=== PATIENT | male | born 1945 | race Caucasian/White ===

== ENCOUNTER 2016-06-06 17:03 | Emergency (ER) | payer MEDICARE, OTHER ==
[~2016-06-06] VITALS: Ht 182.9 cm; Wt 86.2 kg
[~2016-06-06 17:03] MED LIST: ALLO100T PO; BENA5TAB2 PO; DIGO250T4 PO; DOXE50CA4 PO; GABA300C PO; METO50TA3 PO; TAMS-12 PO; WARF1TAB47 PO; ZOLP5TAB2 PO
[2016-06-06] MEDS ORDERED: GELATIN SPONGE,ABSORBABLE 1 SPONGE SPONGE TP ONE (17:29)
[2016-06-06 21:18] VITALS: BP 123/68
== END 2016-06-06 21:19 | disposition home or self-care (01) ==
LOC: ER 17:04
DX: S91.105A Unspecified open wound of left lesser toe(s) without damage to nail, initial encounter (principal); D68.9 Coagulation defect, unspecified; I10 Essential (primary) hypertension; E11.9 Type 2 diabetes mellitus without complications; Z88.6 Allergy status to analgesic agent; Z88.8 Allergy status to other drugs, medicaments and biological substances; Z91.013 Allergy to seafood; Z79.01 Long term (current) use of anticoagulants; W27.8XXA Contact with other nonpowered hand tool, initial encounter; Y93.89 Activity, other specified; Y92.89 Other specified places as the place of occurrence of the external cause; Y99.9 Unspecified external cause status
CPT/HCPCS: 99283; A4606; Z7610

== ENCOUNTER 2016-08-22 20:17 | Inpatient (IN) | payer MEDICARE, OTHER ==
[~2016-08-22] VITALS: Ht 167.6 cm; Wt 99.8 kg
--- NOTE | 2016-08-22 20:30 | NUR ---
71 YO MALE [facility] PER EMT PT WAS SENT FOR "CHRONIC COUGH; HAD XRAY DONE AT [facility] AND WAS ABN; POSSIBLE PNA". PT DS TO ER BED, SKIN WARM AND DRY, RR EVEN AND UNALBORED. AWAITING ORDERS FROM PROVIDER
--- NOTE | 2016-08-22 20:46 | NUR ---
RADIOLOGY AT BED SIDEF OR CXRAY
--- NOTE | 2016-08-22 22:23 | NUR ---
CALLED [facility]AN[facility] TO READ XRAY
[2016-08-22] MEDS ORDERED: IV SET PRIMARY PUMP SET 1 EA INFUS.SET MC ONE (22:25)
[2016-08-22] MEDS ORDERED: PIPERACILLIN /TAZOBACTAM 3.375 G VIAL IV ONE (22:25)
[2016-08-22] MEDS ORDERED: POTA20TA83 PO (22:26)
[2016-08-22] MEDS ORDERED: D-ME118S12 PO (22:26)
[2016-08-22] MEDS ORDERED: BUME2TAB3 PO (22:26)
[2016-08-22] MEDS ORDERED: ESCI5TAB PO (22:26)
[2016-08-22] MEDS ORDERED: ASPI81TA2 PO (22:26)
[2016-08-22] MEDS ORDERED: ACET-2799 PO (22:26)
[2016-08-22] MEDS ORDERED: ATOR40TA PO (22:26)
[2016-08-22] MEDS ORDERED: PANT40TA4 PO (22:26)
[2016-08-22] MEDS ORDERED: NITR0.4T6 SL (22:26)
[2016-08-22] MEDS ORDERED: INSU100V27 SQ (22:26)
[2016-08-22] MEDS ORDERED: APIX2.5T PO (22:26)
[2016-08-22] MEDS ORDERED: ONDA4TAB11 SL (22:26)
[2016-08-22] MEDS ORDERED: ALBU2.5V11 INH (22:26)
[2016-08-22] MEDS ORDERED: LEVO137T2 PO (22:26)
[2016-08-22] MEDS ORDERED: SENN8.6T19 PO (22:26)
[2016-08-22] MEDS ORDERED: CARV25TA PO (22:26)
[2016-08-22] MEDS ORDERED: POLY17PO3 PO (22:26)
[2016-08-22] MEDS ORDERED: MAGN400T6 PO (22:26)
[2016-08-22] MEDS ORDERED: ALBU8.5H2 INH (22:26)
[2016-08-22] MEDS ORDERED: LOPE2CAP40 PO (22:26)
[2016-08-22] MEDS ORDERED: PIPERACILLIN /TAZOBACTAM 3.375 G in IV D5W 50 ML IV ONE (22:30)
--- NOTE | 2016-08-22 22:45 | NUR ---
20G RIGHT AC IV STARTED, BLOOD SAMPLE OBTAINED AND SENT TO LAB
[2016-08-22 22:55] LABS: BASOPHILS % (AUTO) 0.7 % (0.0-2.0); EOSINOPHILS # (AUTO) 0.1 /CMM (0.0-0.7); EOSINOPHILS % (AUTO) 1.8 % (0.0-6.0); HEMATOCRIT 33 % (39-51); LYMPHOCYTES # (AUTO) 0.8 /CMM (0.8-4.8); LYMPHOCYTES % (AUTO) 10.3 % (20.0-44.0); MEAN CORPUSCULAR HEMOGLOBIN 21 PG (26.0-33.0); MEAN CORPUSCULAR HGB CONC 30 g/dl (31.0-36.0); MEAN CORPUSCULAR VOLUME 69 fL (80-96); MONOCYTES # (AUTO) 0.7 /CMM (0.1-1.30); MONOCYTES % (AUTO) 8.9 % (2.0-12.0); NEUTROPHILS # (AUTO) 5.8 /CMM (1.8-8.9); NEUTROPHILS % (AUTO) 78.3 % (43.0-81.0); PLATELET COUNT (AUTO) 187 /CMM (150-450); RDW COEFFICIENT OF VARIATION 20.3 (11.5-15.0); RED BLOOD CELL COUNT(AUTO) 4.75 MIL/uL (4.5-6.0); WHITE BLOOD COUNT (AUTO) 7.4 K/uL (4.3-11.0)
[2016-08-22 23:07] LABS: TROPONIN I < 0.017 ng/mL (0.00-0.056)
[2016-08-22 23:09] LABS: CARBON DIOXIDE 27 mmol/L (21-32); CHLORIDE 105 mmol/L (98-107); CREATININE 2.2 mg/dL (0.6-1.3); GLUCOSE 119 mg/dL (74-106); POTASSIUM 3.7 mmol/L (3.5-5.1); SODIUM SERUM 139 mmol/L (136-145); UREA NITROGEN, BLOOD 37 mg/dL (7-18)
[2016-08-22 23:14] LABS: ALANINE AMINOTRANSFERASE 13 U/L (12-78); ALBUMIN 3.5 g/dL (3.4-5.0); ALKALINE PHOSPHATASE 109 U/L (46-116); ASPARTATE AMINOTRANSFERASE 13 U/L (15-37); B-TYPE NATRIURETIC PEPTIDE 10106 PG/ML (0-125); BILIRUBIN,DIRECT 0.2 mg/dL (0.0-0.2); BILIRUBIN,TOTAL 0.7 mg/dL (0.2-1.0); TOTAL PROTEIN, SERUM 6.4 g/dL (6.4-8.2)
[2016-08-22 23:21] LABS: BAND % (MANUAL) 1 % (0.0-5.0); BASOPHILS % (MANUAL) 1 % (0.0-2.0); LYMPHOCYTES % (MANUAL) 10 % (16-48); MONOCYTES % (MANUAL) 5 % (0-11.0); NEUTROPHILS % (MANUAL) 83 (42-76)
--- NOTE | 2016-08-22 23:22 | NUR ---
CALLED NURSING SUP. FOR TELE BED
[2016-08-23] MEDS ORDERED: ONDANSETRON HCL/PF 4 MG/2 ML VIAL IVP PRN
[2016-08-23] MEDS ORDERED: Z GUARD REMEDY 2 OZ OINT TP PRN
[2016-08-23] MEDS ORDERED: Medication Not On Formulary EA (Acetaminophen 650 MG) PO PRN
[2016-08-23] MEDS ORDERED: NITROGLYCERIN 0.4 MG/TAB BOTTLE SL PRN
[2016-08-23] MEDS ORDERED: MAG HYDROX/AL HYDROX/SIMETH 30 ML UDC PO PRN
[2016-08-23] MEDS ORDERED: MAGNESIUM HYDROXIDE 30 ML UDC PO PRN
--- NOTE | 2016-08-23 00:15 | NUR ---
TRANSPORTED PT TO TELE BED WITHOUT INCIDENT
[2016-08-23 00:30] VITALS: BP 104/45
[2016-08-23] MEDS ORDERED: DEXTROSE 50%-WATER 50 ML DISP.SYRIN IV PRN (00:30)
[2016-08-23 00:40] VITALS: BP 104/45
--- NOTE | 2016-08-23 01:00 | NUR ---
SPECIAL MACHINE OPERATOR NOTE ADMITTED 71 YEARS OLD MALE PT FROM ER WITH THE DX OF PNA BY SOLAR SALES ADVISOR LEOLA HAYWARD. PT IS A/O X 3, NO SOB, NO DISTRESS OR DISCOMFORT NOTED. DENIES PAIN. ON TELE A FIB HR 60 AND V PACING AT TIMES. S/L RAC #20 G ITNACT AND PATENT. SKIN ASSESSMENT DONE, PICTURES TAKEN AND PLACE THEM IN THE CHART. VSS. OREINTED THE PT TO HIS ROOM. ADMITTING ORDERES CHECKED. SIDE RAILS UP X 2 AND CALL LIGHT WITHIN REACH. BED ALARM ON. PT IS USING URINAL. ALL NEEDS ATTENDED. CONTINUE TO MONITOR HIM. PT WANTS TO USE HIS CPAP MACHINE. WILL FOLLOW UP.
--- NOTE | 2016-08-23 01:41 | NUR ---
MEDICAL SERVICES MANAGER NOTE PT WANTS TO USE HIS OWN CPAP. TIRE FABRICATOR LEOLA HAYWARD INFORMED AND RECEIVED NEW ORDER. RT SET UP THE CPAP MACHINE.
--- NOTE | 2016-08-23 02:06 | NUR ---
BAR TACKER SEWING MACHINE NOTE PT WANTS TO EAT, SANDWICH PROVIDED.
[2016-08-23] MEDS ORDERED: FUROSEMIDE 40 MG/4 ML VIAL IV ONE (03:00)
[2016-08-23 04:00] VITALS: BP 125/45
[2016-08-23] MEDS ORDERED: FUROSEMIDE 40 MG/4 ML VIAL ONE (04:14)
--- NOTE | 2016-08-23 04:31 | NUR ---
PRINCIPAL PRODUCT MANAGER NOTE LASIX 40 MG IVP GIVEN ORDERED, VSS. PT IN NO DISTRESS OR DISCOMFORT. CPAP ON.
[2016-08-23] MEDS: BLOOD SUGAR DIAGNOSTIC 1 EACH STRIP IN SCH ×4 (05:47→21:19)
[2016-08-23] MEDS: INSULIN REGULAR, HUMAN 100 UNIT/ML 3 ML VIAL SQ PRN ×4 (05:50→21:18)
--- NOTE | 2016-08-23 06:44 | NUR ---
HOOKER LASTER NOTE PT IN BED ASLEEP, AROUSABLE. NO DISTRESS OR DISCOMFORT NOTED. DENIES PAIN. H/L INTACT AND PATENT. ON TELE A FIB WITH V PACING HR 60. SIDE RAILS UP X 2 AND CALL LIGHT WITHIN REACH. WILL ENDORSE TO DAY SHIFT NURSE FOR CONTINUE TO MONITOR.
[2016-08-23 06:46] LABS: BASOPHILS % (AUTO) 0.6 % (0.0-2.0); EOSINOPHILS # (AUTO) 0.2 /CMM (0.0-0.7); EOSINOPHILS % (AUTO) 2.4 % (0.0-6.0); HEMATOCRIT 31 % (39-51); HEMOGLOBIN 9.4 g/dL (13.5-17.5); LYMPHOCYTES # (AUTO) 0.7 /CMM (0.8-4.8); LYMPHOCYTES % (AUTO) 10.1 % (20.0-44.0); MEAN CORPUSCULAR HEMOGLOBIN 21 PG (26.0-33.0); MEAN CORPUSCULAR HGB CONC 30 g/dl (31.0-36.0); MEAN CORPUSCULAR VOLUME 70 fL (80-96); MONOCYTES # (AUTO) 0.7 /CMM (0.1-1.30); MONOCYTES % (AUTO) 9.2 % (2.0-12.0); NEUTROPHILS # (AUTO) 5.6 /CMM (1.8-8.9); NEUTROPHILS % (AUTO) 77.7 % (43.0-81.0); PLATELET COUNT (AUTO) 178 /CMM (150-450); RDW COEFFICIENT OF VARIATION 20.5 (11.5-15.0); RED BLOOD CELL COUNT(AUTO) 4.47 MIL/uL (4.5-6.0); WHITE BLOOD COUNT (AUTO) 7.2 K/uL (4.3-11.0)
[2016-08-23 07:04] LABS: CALCIUM, SERUM 6.9 mg/dL (8.5-10.1); MAGNESIUM 1.7 mg/dL (1.8-2.4); PHOSPHORUS 3.8 mg/dL (2.5-4.9); POTASSIUM 3.2 mmol/L (3.5-5.1)
[2016-08-23 07:13] LABS: THYROID STIMULATING HORMONE 1.671 uIU/mL (0.358-3.74)
--- NOTE | 2016-08-23 07:40 | NUR ---
RN NOTES: PT RECEIVED IN STABLE CONDITION ALERT AWAKE OX3. ABLE TO VERBALIZE NEEDS. NOTED USING CPAP, PATIENT REQUEST TO SLEEP FOR FEW HOURS. ON TELE MONITOR CONTROLLED A-FIB WITH V-PACING. IV SITE INTACT. SALINE LOCK. VITAL SIGNS TAKEN & DOCUMENTED. DENIES PAIN & DISCOMFORT AT THIS TIME. SAFETY MEASURES OBSERVED. HOB ELEVATED. CALL LIGHT WITHIN REACH. WILL CONTINUE TO MONITOR.
[2016-08-23 08:00] VITALS: BP 98/62
[2016-08-23 08:09] LABS: BAND % (MANUAL) 4 % (0.0-5.0); BASOPHILS % (MANUAL) 1 % (0.0-2.0); EOSINOPHILS % (MANUAL) 2 % (0-4); LYMPHOCYTES % (MANUAL) 10 % (16-48); MONOCYTES % (MANUAL) 7 % (0-11.0); NEUTROPHILS % (MANUAL) 76 (42-76)
[2016-08-23] MEDS ORDERED: Medication Not On Formulary EA (Escitalopram Oxalate (Lexapro) 1 TAB) PO SCH (09:00)
[2016-08-23] MEDS ORDERED: BUMETANIDE (1 MG) 1 MG TABLET PO SCH (09:30)
[2016-08-23] MEDS: CARVEDILOL 12.5 MG TABLET PO SCH ×2 (09:54→21:18)
[2016-08-23] MEDS ORDERED: IV SET PRIMARY PUMP SET 1 EA INFUS.SET MC ONE (10:00)
[2016-08-23] MEDS ORDERED: SECONDARY IV SET 1 EA INFUS.SET MC ONE (10:01)
[2016-08-23] MEDS ORDERED: IV NS 0.9% 250 ML IV ONE (10:01)
[2016-08-23] MEDS: POTASSIUM CHLORIDE 20 MEQ TAB.PRT.SR PO SCH (10:06)
[2016-08-23] MEDS: LEVOTHYROXINE SODIUM 137 MCG TABLET PO SCH (10:06)
[2016-08-23] MEDS: POLYETHYLENE GLYCOL 3350 17 GM POWD.PACK PO SCH (10:06)
[2016-08-23] MEDS: MAGNESIUM OXIDE 400 MG TABLET PO SCH (10:07)
[2016-08-23] MEDS: ASPIRIN 81 MG TAB.CHEW PO SCH (10:07)
[2016-08-23] MEDS: PANTOPRAZOLE 40 MG TABLET.DR PO SCH (10:07)
[2016-08-23] MEDS: ALLOPURINOL 100 MG TABLET PO SCH ×2 (10:07→17:36)
[2016-08-23] MEDS: TAMSULOSIN 0.4 MG CAP.SR.24H PO SCH (10:07)
[2016-08-23] MEDS: APIXABAN 2.5 MG TABLET PO SCH ×2 (10:14→17:36)
[2016-08-23] MEDS: PIPERACILLIN /TAZOBACTAM 3.375 G in IV D5W 50 ML IV SCH ×3 (10:14→23:25)
[2016-08-23] MEDS ORDERED: POTASSIUM CHLORIDE 20 MEQ TAB.PRT.SR PO ONE (12:00)
[2016-08-23] MEDS ORDERED: DIGOXIN 0.25 MG TABLET PO SCH (13:00)
[2016-08-23] MEDS ORDERED: ALBUTEROL FS 2.5 MG/0.5 ML VIAL.NEB NEB PRN (13:30)
--- NOTE | 2016-08-23 15:23 | NUR ---
RN NOTES: REPLACED POTASSIUM ORDERED, NOTED MAG 1.7, DR. MUNSON AWARE. PT IS ON ROUTINE MAG PO DAILY.
--- NOTE | 2016-08-23 15:27 | NUR ---
RN NOTES: OVERRIDE IV NS 0.9% 250ML BAG TO USE A TKO & IV ATB.
[2016-08-23 16:00] VITALS: BP 122/59
[2016-08-23 20:00] VITALS: BP 113/63
--- NOTE | 2016-08-23 20:00 | NUR ---
RECEIVED THE PATIENT IN BED, A&O, FORGETFUL SAFETY MEASURES PLACED.VSS, AFEBRILE NO DISTRESS NOTED, DENIES PAIN CALL LIGHT WITHIN REACH , INSTRUCTED TO CALL FOR ASSISTANCE
[2016-08-23] MEDS: ALBUTEROL FS 2.5 MG/0.5 ML VIAL.NEB NEB SCH ×2 (20:06→23:56)
[2016-08-23] MEDS: DOXEPIN HCL (25 MG) 25 MG CAPSULE PO SCH (21:18)
[2016-08-23] MEDS: SENNOSIDES 8.6 MG TABLET PO SCH (21:19)
[2016-08-23] MEDS: ATORVASTATIN 40 MG TABLET PO SCH (21:19)
--- NOTE | 2016-08-23 22:00 | NUR ---
BS 176- COVERAGE IS GIVEN ORDERED EDUCATION/INSTRUCTIONS GIVEN , NEEDS REINFORCEMENT. CONTINUE TO MONITOR
[2016-08-24 04:00] VITALS: BP 108/60
[2016-08-24] MEDS: ALBUTEROL FS 2.5 MG/0.5 ML VIAL.NEB NEB SCH ×6 (04:07→22:46)
[2016-08-24 06:30] LABS: BASOPHILS # (AUTO) 0.1 /CMM (0.0-0.2); BASOPHILS % (AUTO) 0.7 % (0.0-2.0); EOSINOPHILS # (AUTO) 0.2 /CMM (0.0-0.7); EOSINOPHILS % (AUTO) 2.3 % (0.0-6.0); HEMATOCRIT 32 % (39-51); HEMOGLOBIN 9.6 g/dL (13.5-17.5); LYMPHOCYTES # (AUTO) 0.9 /CMM (0.8-4.8); LYMPHOCYTES % (AUTO) 10.9 % (20.0-44.0); MEAN CORPUSCULAR HEMOGLOBIN 21 PG (26.0-33.0); MEAN CORPUSCULAR HGB CONC 31 g/dl (31.0-36.0); MEAN CORPUSCULAR VOLUME 69 fL (80-96); MONOCYTES # (AUTO) 0.8 /CMM (0.1-1.30); MONOCYTES % (AUTO) 10.5 % (2.0-12.0); NEUTROPHILS # (AUTO) 5.9 /CMM (1.8-8.9); NEUTROPHILS % (AUTO) 75.6 % (43.0-81.0); PLATELET COUNT (AUTO) 197 /CMM (150-450); RDW COEFFICIENT OF VARIATION 20.4 (11.5-15.0); RED BLOOD CELL COUNT(AUTO) 4.58 MIL/uL (4.5-6.0); WHITE BLOOD COUNT (AUTO) 7.8 K/uL (4.3-11.0)
[2016-08-24] MEDS: PIPERACILLIN /TAZOBACTAM 3.375 G in IV D5W 50 ML IV SCH ×4 (06:31→23:12)
[2016-08-24] MEDS: INSULIN REGULAR, HUMAN 100 UNIT/ML 3 ML VIAL SQ PRN ×4 (06:32→21:39)
[2016-08-24] MEDS: BLOOD SUGAR DIAGNOSTIC 1 EACH STRIP IN SCH ×4 (06:32→21:39)
[2016-08-24 06:40] LABS: CALCIUM, SERUM 7.1 mg/dL (8.5-10.1); CREATININE 2.1 mg/dL (0.6-1.3); MAGNESIUM 1.7 mg/dL (1.8-2.4); PHOSPHORUS 3.4 mg/dL (2.5-4.9); POTASSIUM 3.5 mmol/L (3.5-5.1)
[2016-08-24 08:00] VITALS: BP 105/35
[2016-08-24] MEDS: POTASSIUM CHLORIDE 20 MEQ TAB.PRT.SR PO SCH (09:00)
[2016-08-24] MEDS: CARVEDILOL 12.5 MG TABLET PO SCH ×2 (09:00→21:00)
[2016-08-24] MEDS: TAMSULOSIN 0.4 MG CAP.SR.24H PO SCH (09:00)
[2016-08-24] MEDS: APIXABAN 2.5 MG TABLET PO SCH ×2 (09:00→17:05)
[2016-08-24] MEDS: ASPIRIN 81 MG TAB.CHEW PO SCH (10:17)
[2016-08-24] MEDS: LEVOTHYROXINE SODIUM 137 MCG TABLET PO SCH (10:18)
[2016-08-24] MEDS: ESCITALOPRAM OXALATE (10 MG) 10 MG TABLET PO SCH (10:18)
[2016-08-24] MEDS: PANTOPRAZOLE 40 MG TABLET.DR PO SCH (10:19)
[2016-08-24] MEDS: MAGNESIUM OXIDE 400 MG TABLET PO SCH (10:19)
[2016-08-24] MEDS: ALLOPURINOL 100 MG TABLET PO SCH ×2 (10:19→17:04)
[2016-08-24] MEDS: POLYETHYLENE GLYCOL 3350 17 GM POWD.PACK PO SCH (10:19)
[2016-08-24] MEDS: ACETAMINOPHEN 325 MG TABLET PO PRN (11:21)
[2016-08-24] MEDS: PROMETHAZINE HCL SYRUP 6.25 MG/5 ML UDC PO PRN ×2 (11:21→17:12)
[2016-08-24] MEDS ORDERED: Magnesium 1GM/D5W 100ML PREMIX 100 ML IV SCH (12:00)
[2016-08-24 16:00] VITALS: BP 94/46
[2016-08-24 20:00] VITALS: BP 103/49
--- NOTE | 2016-08-24 20:00 | NUR ---
RN INITIAL NOTE PT ON THE BED RESTING WITHOUT ANY DISTRESS , A/O X 3 ,EPISODE OF FORGETFULNESS. BREATHING EVEN AND UNLABORED ON ROOM AIR, PERIPHERAL IV ON L INDEX 22 G INTACT AND PATENT . DENIED ANY PAIN AT THIS TIME .CONTINENT FOR BOWEL/BLADDER. BED IN THE LOWEST/LOCKED POSITION. SAFETY MEASURES APPLIED. CALL LIGHT WITHIN REACH. WILL CONTINUE TO MONITOR .
[2016-08-24] MEDS: SENNOSIDES 8.6 MG TABLET PO SCH (21:44)
[2016-08-24] MEDS: ATORVASTATIN 40 MG TABLET PO SCH (21:44)
[2016-08-24] MEDS: DOXEPIN HCL (25 MG) 25 MG CAPSULE PO SCH (21:44)
--- NOTE | 2016-08-24 23:19 | NUR ---
RN NOTE; ON PT OWN HOME CPAP AT THIS TIME , SETTING 25% , 14.0 WILL CONTINUE TO MONITOR .
[2016-08-25] MEDS: ACETAMINOPHEN 325 MG TABLET PO PRN (01:28)
[2016-08-25] MEDS ORDERED: ZOLPIDEM TARTRATE 5 MG TABLET ONE (01:39)
--- NOTE | 2016-08-25 01:42 | NUR ---
RN NOTE; RECEIVED ORDER FROM LINE SUPPLY FOR AMBIEN 5 MG PO ONCE PER PT REQUEST , GIVEN AND TOLERATED WELL, WILL REASSESS
[2016-08-25] MEDS ORDERED: ZOLPIDEM TARTRATE 5 MG TABLET PO ONE (02:00)
[2016-08-25 04:00] VITALS: BP 114/52
[2016-08-25] MEDS: ALBUTEROL FS 2.5 MG/0.5 ML VIAL.NEB NEB SCH ×5 (04:03→19:41)
[2016-08-25] MEDS: PIPERACILLIN /TAZOBACTAM 3.375 G in IV D5W 50 ML IV SCH ×3 (05:46→18:00)
[2016-08-25] MEDS ORDERED: IV NS 0.9% 250 ML IV ONE ×2 (05:46→23:15)
[2016-08-25] MEDS: INSULIN REGULAR, HUMAN 100 UNIT/ML 3 ML VIAL SQ PRN ×4 (06:34→21:29)
[2016-08-25] MEDS: BLOOD SUGAR DIAGNOSTIC 1 EACH STRIP IN SCH ×4 (06:35→21:29)
[2016-08-25 06:48] LABS: BASOPHILS % (AUTO) 0.5 % (0.0-2.0); EOSINOPHILS # (AUTO) 0.2 /CMM (0.0-0.7); EOSINOPHILS % (AUTO) 2.7 % (0.0-6.0); HEMATOCRIT 29 % (39-51); HEMOGLOBIN 9.1 g/dL (13.5-17.5); LYMPHOCYTES # (AUTO) 0.8 /CMM (0.8-4.8); LYMPHOCYTES % (AUTO) 9.2 % (20.0-44.0); MEAN CORPUSCULAR HEMOGLOBIN 22 PG (26.0-33.0); MEAN CORPUSCULAR HGB CONC 31 g/dl (31.0-36.0); MEAN CORPUSCULAR VOLUME 69 fL (80-96); MONOCYTES # (AUTO) 0.9 /CMM (0.1-1.30); MONOCYTES % (AUTO) 10.1 % (2.0-12.0); NEUTROPHILS # (AUTO) 6.7 /CMM (1.8-8.9); NEUTROPHILS % (AUTO) 77.5 % (43.0-81.0); PLATELET COUNT (AUTO) 184 /CMM (150-450); RDW COEFFICIENT OF VARIATION 20.5 (11.5-15.0); RED BLOOD CELL COUNT(AUTO) 4.25 MIL/uL (4.5-6.0); WHITE BLOOD COUNT (AUTO) 8.6 K/uL (4.3-11.0)
--- NOTE | 2016-08-25 07:09 | NUR ---
RN EOS NOTE; NO ANY DISTRESS NOTED DURING THE SHIFT, ALL NEEDS ATTENDED PROMPTLY, KEPT CLEAN AND DRY , CALL LIGHT WITHIN REACH, ENDORSED TO DAY SHIFT RN FOR CONTINUITY OF CARE.
[2016-08-25 07:44] LABS: ALBUMIN 3.1 g/dL (3.4-5.0); BILIRUBIN,TOTAL 0.8 mg/dL (0.2-1.0); CALCIUM, SERUM 7.2 mg/dL (8.5-10.1); MAGNESIUM 2.1 mg/dL (1.8-2.4); POTASSIUM 3.5 mmol/L (3.5-5.1); TOTAL PROTEIN, SERUM 6.1 g/dL (6.4-8.2)
[2016-08-25 08:00] VITALS: BP 113/62
[2016-08-25] MEDS: ASPIRIN 81 MG TAB.CHEW PO SCH (08:28)
[2016-08-25] MEDS: LEVOTHYROXINE SODIUM 137 MCG TABLET PO SCH (08:28)
[2016-08-25] MEDS: ESCITALOPRAM OXALATE (10 MG) 10 MG TABLET PO SCH (08:28)
[2016-08-25] MEDS: CARVEDILOL 12.5 MG TABLET PO SCH ×2 (08:29→21:00)
[2016-08-25] MEDS: PANTOPRAZOLE 40 MG TABLET.DR PO SCH (08:29)
[2016-08-25] MEDS: TAMSULOSIN 0.4 MG CAP.SR.24H PO SCH (08:29)
[2016-08-25] MEDS: MAGNESIUM OXIDE 400 MG TABLET PO SCH (08:30)
[2016-08-25] MEDS: ALLOPURINOL 100 MG TABLET PO SCH ×2 (08:30→17:09)
[2016-08-25] MEDS: POLYETHYLENE GLYCOL 3350 17 GM POWD.PACK PO SCH (08:40)
[2016-08-25] MEDS: APIXABAN 2.5 MG TABLET PO SCH ×2 (08:50→17:09)
[2016-08-25] MEDS ORDERED: FUROSEMIDE 20 MG/2 ML VIAL IV SCH (09:00)
[2016-08-25 09:03] LABS: DIGOXIN 1.4 ng/mL (0.90-2.00)
[2016-08-25 12:00] VITALS: BP 98/48
[2016-08-25] MEDS ORDERED: BENAZEPRIL HCL 5 MG TABLET PO SCH (13:00)
[2016-08-25] MEDS: BENAZEPRIL HCL 5 MG TABLET PO SCH (14:00)
[2016-08-25] MEDS: SOD FERRIC GLUC 125 MG in IV NS 0.9% 100 ML IV SCH (14:14)
[2016-08-25 16:00] VITALS: BP 98/48
[2016-08-25] MEDS: FUROSEMIDE 20 MG/2 ML VIAL IV SCH (17:08)
--- NOTE | 2016-08-25 19:25 | NUR ---
RN INITIAL NOTE PT ON THE BED SLEEPING WITH CPAP ON AT THIS TIME .ABLE TO AROUSE , NO ANY DISTRESS AT THIS TIME. A/O X 3 ,EPISODE OF FORGETFULNESS. PERIPHERAL IV ON L INDEX 22 G INTACT AND PATENT . DENIED ANY PAIN AT THIS TIME .CONTINENT FOR BOWEL/BLADDER. BED IN THE LOWEST/LOCKED POSITION. SAFETY MEASURES APPLIED. CALL LIGHT WITHIN REACH. WILL CONTINUE TO MONITOR .
--- NOTE | 2016-08-25 19:37 | NUR ---
RN NOTE; CALLED QUAN TECH AND MADE AWARE OF ULTRA SOUND KIDNEY ORDER , ACKNOWLEDGED.
[2016-08-25 20:00] VITALS: BP 108/53
[2016-08-25] MEDS: DOXEPIN HCL (25 MG) 25 MG CAPSULE PO SCH (21:29)
[2016-08-25] MEDS: ATORVASTATIN 40 MG TABLET PO SCH (21:29)
[2016-08-25] MEDS: SENNOSIDES 8.6 MG TABLET PO SCH (21:29)
[2016-08-25] MEDS ORDERED: SECONDARY IV SET 1 EA INFUS.SET MC ONE (23:16)
[2016-08-25] MEDS ORDERED: IV SET PRIMARY PUMP SET 1 EA INFUS.SET MC ONE (23:16)
[2016-08-26] MEDS: PIPERACILLIN /TAZOBACTAM 3.375 G in IV D5W 50 ML IV SCH ×5 (00:08→23:31)
[2016-08-26] MEDS: ALBUTEROL FS 2.5 MG/0.5 ML VIAL.NEB NEB SCH ×7 (00:35→23:53)
[2016-08-26 04:00] VITALS: BP 95/48
[2016-08-26] MEDS: INSULIN REGULAR, HUMAN 100 UNIT/ML 3 ML VIAL SQ PRN ×3 (06:36→21:57)
[2016-08-26] MEDS: BLOOD SUGAR DIAGNOSTIC 1 EACH STRIP IN SCH ×4 (06:36→21:50)
[2016-08-26 06:37] LABS: BASOPHILS # (AUTO) 0.1 /CMM (0.0-0.2); BASOPHILS % (AUTO) 0.8 % (0.0-2.0); EOSINOPHILS # (AUTO) 0.2 /CMM (0.0-0.7); EOSINOPHILS % (AUTO) 2.4 % (0.0-6.0); HEMATOCRIT 30 % (39-51); HEMOGLOBIN 9.1 g/dL (13.5-17.5); LYMPHOCYTES # (AUTO) 0.6 /CMM (0.8-4.8); LYMPHOCYTES % (AUTO) 8.2 % (20.0-44.0); MEAN CORPUSCULAR HEMOGLOBIN 21 PG (26.0-33.0); MEAN CORPUSCULAR HGB CONC 31 g/dl (31.0-36.0); MEAN CORPUSCULAR VOLUME 69 fL (80-96); MONOCYTES # (AUTO) 0.6 /CMM (0.1-1.30); MONOCYTES % (AUTO) 7.7 % (2.0-12.0); NEUTROPHILS # (AUTO) 6.4 /CMM (1.8-8.9); NEUTROPHILS % (AUTO) 80.9 % (43.0-81.0); PLATELET COUNT (AUTO) 170 /CMM (150-450); RDW COEFFICIENT OF VARIATION 20.2 (11.5-15.0); RED BLOOD CELL COUNT(AUTO) 4.32 MIL/uL (4.5-6.0); WHITE BLOOD COUNT (AUTO) 7.9 K/uL (4.3-11.0)
--- NOTE | 2016-08-26 07:05 | NUR ---
RN EOS NOTE; PT REMAINED STABLE DURING THE SHIFT, ALL MEDS TOLERATED WELL. ON NIGHT TIME CPAP. NO ANY DISTRESS NOTED. ALL NEEDS ATTENDED PROMPTLY. CALL LIGHT WITHIN REACH . ENDORSED TO DAY SHIFT RN FOR CONTINUITY OF CARE.
[2016-08-26 07:17] LABS: BILIRUBIN,TOTAL 0.7 mg/dL (0.2-1.0); CALCIUM, SERUM 7.2 mg/dL (8.5-10.1); MAGNESIUM 1.9 mg/dL (1.8-2.4); PHOSPHORUS 3.2 mg/dL (2.5-4.9); POTASSIUM 3.5 mmol/L (3.5-5.1)
--- NOTE | 2016-08-26 07:30 | NUR ---
RECEIVED PT. ALERT AND ORIENTED X 3.ALITTLE FORGETFUL. E-PAP STILL ON AT THIS TIME.
[2016-08-26 08:00] VITALS: BP 89/40
[2016-08-26 08:30] VITALS: BP 124/61
[2016-08-26] MEDS: BENAZEPRIL HCL 5 MG TABLET PO SCH (09:00)
[2016-08-26] MEDS: FUROSEMIDE 20 MG/2 ML VIAL IV SCH ×2 (10:51→17:00)
[2016-08-26] MEDS: ASPIRIN 81 MG TAB.CHEW PO SCH (10:51)
[2016-08-26] MEDS: TAMSULOSIN 0.4 MG CAP.SR.24H PO SCH ×2 (10:51→10:56)
[2016-08-26] MEDS: ESCITALOPRAM OXALATE (10 MG) 10 MG TABLET PO SCH (10:52)
[2016-08-26] MEDS: MAGNESIUM OXIDE 400 MG TABLET PO SCH (10:52)
[2016-08-26] MEDS: PANTOPRAZOLE 40 MG TABLET.DR PO SCH (10:52)
[2016-08-26] MEDS: POLYETHYLENE GLYCOL 3350 17 GM POWD.PACK PO SCH (10:52)
[2016-08-26] MEDS: ALLOPURINOL 100 MG TABLET PO SCH ×2 (10:53→18:48)
[2016-08-26] MEDS: CARVEDILOL 12.5 MG TABLET PO SCH ×2 (11:02→21:00)
[2016-08-26] MEDS: APIXABAN 2.5 MG TABLET PO SCH ×2 (11:02→18:48)
[2016-08-26] MEDS: LEVOTHYROXINE SODIUM 137 MCG TABLET PO SCH (11:02)
[2016-08-26 12:00] VITALS: BP 88/34
[2016-08-26] MEDS ORDERED: SECONDARY IV SET 1 EA INFUS.SET MC ONE ×2 (12:57→15:20)
[2016-08-26] MEDS: SOD FERRIC GLUC 125 MG in IV NS 0.9% 100 ML IV SCH ×2 (14:00→15:24)
--- NOTE | 2016-08-26 14:30 | NUR ---
IV REMOVED LT. INDEX FINGER INFILTRATED. DR. AU CALLED REFUSING TO HAVE RESTARTED.ADDITIONALLY IN FORMEDOFLOW BP,S.NO ORDERS GIVEN.
[2016-08-26 16:00] VITALS: BP 103/64
--- NOTE | 2016-08-26 17:00 | NUR ---
INSERTING PRESS OPERATOR IN AND RESTARTED IN RT. ARM.EXPLAINED NEED FRO IV,CONFUSED AT TIMES.
[2016-08-26] MEDS ORDERED: IV SET PRIMARY PUMP SET 1 EA INFUS.SET MC ONE (18:00)
--- NOTE | 2016-08-26 19:31 | NUR ---
MS RN INITIAL NOTE RECEIVED PT RESTING IN BED. A/O X2-3, PERIODS OF CONFUSION AND ABLE TO MAKE NEEDS KNOWN. ON ROOM AIR AND SATING WELL. IV SITE R ARM PATENT AND FLUSHING WELL. ALL SAFETY MEASURES IN PLACE. CALL LIGHT WITHIN EASY REACH AT ALL TIMES.WILL CONTINUE TO MONITOR.
[2016-08-26 20:00] VITALS: BP 101/47
[2016-08-26] MEDS: DOXEPIN HCL (25 MG) 25 MG CAPSULE PO SCH (21:50)
[2016-08-26] MEDS: SENNOSIDES 8.6 MG TABLET PO SCH (21:50)
[2016-08-26] MEDS: ATORVASTATIN 40 MG TABLET PO SCH (21:50)
[2016-08-27 04:00] VITALS: BP_SYST 100; BP_SYST 111; BP_DIAS 42; BP_DIAS 50
[2016-08-27] MEDS: ALBUTEROL FS 2.5 MG/0.5 ML VIAL.NEB NEB SCH ×6 (04:28→22:52)
[2016-08-27] MEDS: PIPERACILLIN /TAZOBACTAM 3.375 G in IV D5W 50 ML IV SCH ×4 (06:54→23:17)
[2016-08-27] MEDS: BLOOD SUGAR DIAGNOSTIC 1 EACH STRIP IN SCH ×4 (06:54→21:28)
--- NOTE | 2016-08-27 07:05 | NUR ---
MS RN CLOSING NOTE PT REMAINED STABLE DURING SHIFT. ALL SAFETY MEASURES IN PLACE. CALL LIGHT WITHIN EASY REACH AT ALL TIMES. WILL ENDORSE TO NEXT SHIFT FOR TONIA.
[2016-08-27] MEDS: LEVOTHYROXINE SODIUM 137 MCG TABLET PO SCH (07:50)
--- NOTE | 2016-08-27 07:56 | NUR ---
RN AM NOTES PATIENT RECEIVED ASLEEP, BUT EASILY AROUSABLE, IN STABLE CONDITION. PREFERS AND REQUESTS TO KEEP BIPAP MASK ON, EXPLAINED TO HIM HE NEEDS TO TAKE IT OFF TO RECEIVE BREATHING TREATMENT, BUT CAN PUT IT BACK ON AFTERWARDS IF HE REALLY NEEDS IT. PATIENT COOPERATIVE AND VERBALIZED UNDERSTANDING. SYNTHROID ADMINISTERED. WILL CONTINUE TO MONITOR.
[2016-08-27 08:00] VITALS: BP 95/49
[2016-08-27] MEDS: POLYETHYLENE GLYCOL 3350 17 GM POWD.PACK PO SCH (09:00)
[2016-08-27] MEDS: CARVEDILOL 12.5 MG TABLET PO SCH ×2 (09:00→21:00)
[2016-08-27 12:00] VITALS: BP 121/77
[2016-08-27] MEDS: TAMSULOSIN 0.4 MG CAP.SR.24H PO SCH (12:06)
[2016-08-27] MEDS: ASPIRIN 81 MG TAB.CHEW PO SCH (12:06)
[2016-08-27] MEDS: ESCITALOPRAM OXALATE (10 MG) 10 MG TABLET PO SCH (12:06)
[2016-08-27] MEDS: MAGNESIUM OXIDE 400 MG TABLET PO SCH (12:06)
[2016-08-27] MEDS: ALLOPURINOL 100 MG TABLET PO SCH ×2 (12:06→17:50)
[2016-08-27] MEDS: PANTOPRAZOLE 40 MG TABLET.DR PO SCH (12:06)
[2016-08-27] MEDS: FUROSEMIDE 20 MG/2 ML VIAL IV SCH ×2 (12:07→17:50)
[2016-08-27] MEDS: BENAZEPRIL HCL 5 MG TABLET PO SCH (12:07)
[2016-08-27] MEDS: APIXABAN 2.5 MG TABLET PO SCH ×2 (12:12→17:51)
[2016-08-27] MEDS: INSULIN REGULAR, HUMAN 100 UNIT/ML 3 ML VIAL SQ PRN ×2 (12:47→21:34)
[2016-08-27 16:00] VITALS: BP 117/69
--- NOTE | 2016-08-27 16:14 | NUR ---
CALLED PHARMACY TWICE TO REQUEST FERRLECIT, STILL WAITING FOR MEDICATION. WILL CONTINUE TO FOLLOW UP.
[2016-08-27] MEDS: SOD FERRIC GLUC 125 MG in IV NS 0.9% 100 ML IV SCH (17:50)
[2016-08-27] MEDS ORDERED: SECONDARY IV SET 1 EA INFUS.SET MC ONE (18:14)
--- NOTE | 2016-08-27 18:38 | NUR ---
RN PM NOTES PATIENT IN BED ASLEEP, BUT EASILY AROUSABLE AFTER DINNER. TOLERATING IV INFUSION WELL. BLOOD SUGAR =126 AT 1730, NO COVERAGE NEEDED. IN STABLE CONDITION, NO SOB, PAIN OR DISTRESS. WILL ENDORSE TO NEXT SHIFT.
--- NOTE | 2016-08-27 19:35 | NUR ---
MS RN INITIAL NOTE PT IN BED. A/O X2-3, FORGETFUL BUT ABLE TO MAKE NEEDS KNOWN. ROOM AIR SATING WELL. IV R ARM CLEAN, PATENT, INTACT AND FLUSHING WELL. NO S/SX OF INFECTION NOTED ON IV SITE. CALL LIGHT WITHIN REACH. WILL CONTINUE TO MONITOR.
[2016-08-27 20:00] VITALS: BP 93/42
[2016-08-27] MEDS: SENNOSIDES 8.6 MG TABLET PO SCH (21:28)
[2016-08-27] MEDS: ATORVASTATIN 40 MG TABLET PO SCH (21:28)
[2016-08-27] MEDS: DOXEPIN HCL (25 MG) 25 MG CAPSULE PO SCH (21:28)
[2016-08-27] MEDS ORDERED: IV NS 0.9% 250 ML IV ONE (23:21)
[2016-08-28] MEDS: PROMETHAZINE HCL SYRUP 6.25 MG/5 ML UDC PO PRN (01:37)
[2016-08-28] MEDS: ACETAMINOPHEN 325 MG TABLET PO PRN (01:38)
[2016-08-28] MEDS: ALBUTEROL FS 2.5 MG/0.5 ML VIAL.NEB NEB SCH ×6 (03:24→23:33)
[2016-08-28 04:00] VITALS: BP 98/52
[2016-08-28] MEDS: PIPERACILLIN /TAZOBACTAM 3.375 G in IV D5W 50 ML IV SCH ×3 (05:55→17:58)
[2016-08-28] MEDS: BLOOD SUGAR DIAGNOSTIC 1 EACH STRIP IN SCH ×4 (06:38→21:48)
[2016-08-28] MEDS: LEVOTHYROXINE SODIUM 100 MCG TABLET PO SCH ×2 (06:38→07:48)
[2016-08-28] MEDS: INSULIN REGULAR, HUMAN 100 UNIT/ML 3 ML VIAL SQ PRN ×2 (06:44→12:25)
--- NOTE | 2016-08-28 07:15 | NUR ---
MS/RN AM NOTES RECEIVED PATIENT IN BED, AWAKE, ALERT, NO SOB, NO DISTRESS, RESPIRATION EVEN, UNLABORED. ON RA O2 SATURATION 94%. DENIES PAIN. IV LINE RFA INTACT, PATENT. BED IN LOW POSITION, 2 SR UP FOR SAFETY, WITH CALL LIGHT WITHIN EASY REACH. WILL CONTINUE TO MONITOR ACCORDINGLY.
--- NOTE | 2016-08-28 07:25 | NUR ---
MS RN CLOSING NOTE PT REMAINED STABLE DURING SHIFT. NO C/O PAIN. NO SOB NOTED. CALL LIGHT WITHIN EASY REACH. WILL ENDORSE TO NEXT SHIFT FOR TONIA.
[2016-08-28 08:00] VITALS: BP 94/50
[2016-08-28] MEDS: ALLOPURINOL 100 MG TABLET PO SCH ×2 (08:06→17:58)
[2016-08-28] MEDS: ASPIRIN 81 MG TAB.CHEW PO SCH (08:06)
[2016-08-28] MEDS: MAGNESIUM OXIDE 400 MG TABLET PO SCH (08:06)
[2016-08-28] MEDS: HYDROCODONE/APAP 5/325MG 1 EACH TABLET PO PRN (08:07)
[2016-08-28] MEDS: ESCITALOPRAM OXALATE (10 MG) 10 MG TABLET PO SCH (08:08)
[2016-08-28] MEDS: FUROSEMIDE 20 MG/2 ML VIAL IV SCH ×2 (08:08→17:58)
[2016-08-28] MEDS: PANTOPRAZOLE 40 MG TABLET.DR PO SCH (08:08)
[2016-08-28] MEDS: CARVEDILOL 12.5 MG TABLET PO SCH ×2 (08:09→21:00)
[2016-08-28] MEDS: POLYETHYLENE GLYCOL 3350 17 GM POWD.PACK PO SCH (08:10)
[2016-08-28] MEDS: BENAZEPRIL HCL 5 MG TABLET PO SCH (08:10)
[2016-08-28] MEDS: APIXABAN 2.5 MG TABLET PO SCH ×2 (09:01→17:58)
--- NOTE | 2016-08-28 10:00 | NUR ---
RN NOTES HELD BLOOD PRESSURE MEDICATION D/T BP 94/50, 68, PATIENT IS ASYMPTOMATIC. HELD MIRALAX D/T LBM X 3 DURING THE MACHINE HEDDLE CLEANER, PER REPORT
--- NOTE | 2016-08-28 14:50 | NUR ---
RN NOTES DR. AU VISITED, EXAMINED PATIENT, WITH ORDERS FOR LIVER US D/T DX OBESITY, AND HEP B SURFACE ANTIGEN, HEP C ANTIBODY LAB TEST. NOTED, CARRIED OUT
[2016-08-28] MEDS: SOD FERRIC GLUC 125 MG in IV NS 0.9% 100 ML IV SCH (15:00)
[2016-08-28 16:00] VITALS: BP 101/64
[2016-08-28 18:11] VITALS: BP 101/64
--- NOTE | 2016-08-28 18:38 | NUR ---
MS/RN CLOSING NOTES PATIENT REMAINS STABLE DURING THE SHIFT, NO CHANGES IN CONDITION, SATURATING WELL, NO S/SX DISTRESS, NO PAIN, IV LINE INTACT RFA, PATENT. NO S/SX HYPO OR HYPERGLYCEMIA NOTED. BLOOD SUGAR CHECKED BEFORE DINNER, 117, NO COVERAGE GIVEN, NO CHANGES IN APPETITE. LIVER US DONE. KEPT CLEAN, DRY COMFORTABLE, NEEDS MET IN TIMELY MANNER. WITH CALL LIGHT WITHIN EASY REACH ALL THE TIME. WILL ENDORSE TO THE CAD ADMINISTRATOR NURSE ACCORDINGLY.
--- NOTE | 2016-08-28 19:20 | NUR ---
RN NOTES RECEIVED PT AWAKE, HOB ELEVATED, WITH O2 INHALATION AT 2LPM VIA NC TOLERATED WELL WITH GOOD SATURATION. PT ALERT AND ORIENTED X3, DENIES ANY PAIN AND DISCOMFORT AT THIS TIME. DIMINISHED LUNG SOUNDS NOTED UPON AUSCULTATION. IV ACCESS ON RIGHT FOREARM PATENT AND INTACT WITH ONGOING IVF AT TKO RATE. KEPT BED IN THE LOWEST POSITION, LOCKED, SIDE RAILS X2 UP WITH CALL LIGHT WITHIN REACH. KEPT COMFORTABLE AND ATTENDED. WILL CONTINUE TO MONITOR PT.
[2016-08-28 20:00] VITALS: BP 92/42
--- NOTE | 2016-08-28 20:45 | NUR ---
RN NOTES CPAP APPLIED WITH SETTINGS IN PLACED, PT VERBALIZED HE WANTS TO SLEEP ALREADY. WILL CONTINUE TO MONITOR PT.
[2016-08-28] MEDS: ATORVASTATIN 40 MG TABLET PO SCH (21:49)
[2016-08-28] MEDS: SENNOSIDES 8.6 MG TABLET PO SCH (21:49)
[2016-08-28] MEDS: DOXEPIN HCL (25 MG) 25 MG CAPSULE PO SCH (21:49)
--- NOTE | 2016-08-28 23:08 | NUR ---
RN NOTES VISITED BY DR ECHEVERRIA, SEEN AND EXAMINED PT. NEW ORDER RECEIVED, PT FOR EGD TOMORROW. PT AWARE, WILL SECURE CONSENT. NOTED AND CARRIED OUT.
[2016-08-29] VITALS: BP 95/53
--- NOTE | 2016-08-29 | NUR ---
RN NOTES PLACED PT ON NPO FOR SCHEDULED EGD WITH DR ECHEVERRIA. PT VERBALIZED UNDERSTANDING. WILL CONTINUE TO MONITOR PT.
[2016-08-29] MEDS: PIPERACILLIN /TAZOBACTAM 3.375 G in IV D5W 50 ML IV SCH ×4 (00:08→17:41)
[2016-08-29] MEDS: ALBUTEROL FS 2.5 MG/0.5 ML VIAL.NEB NEB SCH ×6 (03:31→23:46)
[2016-08-29 04:00] VITALS: BP 96/46
--- NOTE | 2016-08-29 05:20 | NUR ---
RN NOTES CONSENT FOR EGD AND BLOOD TRANSFUSION SECURED AND SIGNED BY THE PT.
[2016-08-29] MEDS: BLOOD SUGAR DIAGNOSTIC 1 EACH STRIP IN SCH ×4 (06:32→21:57)
[2016-08-29 06:34] LABS: CALCIUM, SERUM 7.4 mg/dL (8.5-10.1); CREATININE 1.9 mg/dL (0.6-1.3); POTASSIUM 3.4 mmol/L (3.5-5.1)
[2016-08-29 06:48] LABS: BASOPHILS % (AUTO) 0.3 % (0.0-2.0); EOSINOPHILS # (AUTO) 0.2 /CMM (0.0-0.7); EOSINOPHILS % (AUTO) 2.1 % (0.0-6.0); HEMATOCRIT 30 % (39-51); HEMOGLOBIN 9.2 g/dL (13.5-17.5); LYMPHOCYTES # (AUTO) 0.5 /CMM (0.8-4.8); LYMPHOCYTES % (AUTO) 7.3 % (20.0-44.0); MEAN CORPUSCULAR HEMOGLOBIN 21 PG (26.0-33.0); MEAN CORPUSCULAR HGB CONC 31 g/dl (31.0-36.0); MEAN CORPUSCULAR VOLUME 69 fL (80-96); MONOCYTES # (AUTO) 0.5 /CMM (0.1-1.30); MONOCYTES % (AUTO) 6.5 % (2.0-12.0); NEUTROPHILS # (AUTO) 6.1 /CMM (1.8-8.9); NEUTROPHILS % (AUTO) 83.8 % (43.0-81.0); PLATELET COUNT (AUTO) 203 /CMM (150-450); RDW COEFFICIENT OF VARIATION 20.5 (11.5-15.0); RED BLOOD CELL COUNT(AUTO) 4.34 MIL/uL (4.5-6.0); WHITE BLOOD COUNT (AUTO) 7.3 K/uL (4.3-11.0)
--- NOTE | 2016-08-29 06:54 | NUR ---
RN NOTES PT ASLEEP, WITH CPAP ON WITH SETTINGS IN PLACE AND TOLERATED WELL. NO SOB, NOT IN DISTRESS, NO COMPLAIN OF PAIN, NO EPISODE OF NAUSEA AND VOMITING WITHIN THE SHIFT. VITAL SIGNS STABLE WITH SBP BELOW 100. KEPT PT ON NPO, PT FOR EGD AT 1130 AM. ALL DUE MEDS GIVEN. KEPT COMFORTABLE AND ATTENDED. WILL ENDORSE TO MORNING RN FOR CONTINUITY OF CARE.
--- NOTE | 2016-08-29 07:35 | NUR ---
RN NOTES: PT RECEIVED IN STABLE CONDITION ALERT AWAKE OX3. RESPONSIVE TO VERBAL & TACTILE STIMULI. ABLE TO MAKE NEEDS KNOWN, ON O2 VIA NC. BREATHING PATTERN REGULAR & UNLABOURED. NPO POST MIDNIGHT, EGD SCHEDULE TODAY. IV SITE INTACT, DRESSING CLEAN & DRY. SAFETY MEASURES OBSERVED. USE CPAP AT NIGHT TIME. ALL NEEDS ATTENDED. CALL LIGHT WITHIN REACH. WILL CONTINUE TO MONITOR.,
[2016-08-29 08:00] VITALS: BP_SYST 90; BP_SYST 96; BP_DIAS 51
[2016-08-29] MEDS: ASPIRIN 81 MG TAB.CHEW PO SCH (08:10)
[2016-08-29] MEDS: CARVEDILOL 12.5 MG TABLET PO SCH ×2 (08:10→21:00)
[2016-08-29] MEDS: FUROSEMIDE 20 MG/2 ML VIAL IV SCH ×2 (08:10→17:41)
[2016-08-29] MEDS: ESCITALOPRAM OXALATE (10 MG) 10 MG TABLET PO SCH (08:11)
[2016-08-29] MEDS: BENAZEPRIL HCL 5 MG TABLET PO SCH (08:11)
[2016-08-29] MEDS: TAMSULOSIN 0.4 MG CAP.SR.24H PO SCH (08:11)
[2016-08-29] MEDS: APIXABAN 2.5 MG TABLET PO SCH ×2 (08:11→17:41)
[2016-08-29] MEDS: PANTOPRAZOLE 40 MG TABLET.DR PO SCH (08:12)
[2016-08-29] MEDS: POLYETHYLENE GLYCOL 3350 17 GM POWD.PACK PO SCH (08:13)
[2016-08-29 08:52] LABS: BAND % (MANUAL) 2 % (0.0-5.0); EOSINOPHILS % (MANUAL) 2 % (0-4); LYMPHOCYTES % (MANUAL) 9 % (16-48); MONOCYTES % (MANUAL) 6 % (0-11.0); NEUTROPHILS % (MANUAL) 81 (42-76)
[2016-08-29] MEDS: ACETAMINOPHEN 325 MG TABLET PO PRN (08:53)
[2016-08-29] MEDS ORDERED: BUMETANIDE INJ 4 MG in IV D5W 24 ML IV ONE (10:00)
[2016-08-29] MEDS ORDERED: PEG 3350/NA SULF,BICARB,CL/KCL 4,000 ML BOTTLE PO ONE (11:00)
[2016-08-29] MEDS: ALLOPURINOL 100 MG TABLET PO SCH ×2 (11:23→17:41)
[2016-08-29] MEDS: MAGNESIUM OXIDE 400 MG TABLET PO SCH (11:23)
--- NOTE | 2016-08-29 12:00 | NUR ---
RN NOTES: RECEIVED POST OP EGD PROCEDURE. WITH NO ANY FINDINGS. RECEIVED NEW ORDERS FOR COLONOSCOPY SUNDAY. DIET ORDERS NOTED & CARRIED OUT.
[2016-08-29] MEDS ORDERED: POTASSIUM CHLORIDE 10 MEQ TABLET.SA PO ONE (12:30)
[2016-08-29] MEDS ORDERED: SECONDARY IV SET 1 EA INFUS.SET MC ONE (13:53)
[2016-08-29] MEDS: SOD FERRIC GLUC 125 MG in IV NS 0.9% 100 ML IV SCH (13:58)
[2016-08-29 16:00] VITALS: BP 121/75
[2016-08-29] MEDS: INSULIN REGULAR, HUMAN 100 UNIT/ML 3 ML VIAL SQ PRN ×2 (17:40→21:57)
--- NOTE | 2016-08-29 19:09 | NUR ---
RN NOTES: PT SIGNED CONSENT FOR COLONOSCOPY. PLACED IN THE CHART.
[2016-08-29 20:00] VITALS: BP 108/46
--- NOTE | 2016-08-29 21:44 | NUR ---
RN NOTES: COREG 25 MG IS HELD DUE TO BLOOD PRESSURE READING OF 108/46 MMHG. HR: 75 BPM.
[2016-08-29] MEDS: ATORVASTATIN 40 MG TABLET PO SCH (21:50)
[2016-08-29] MEDS: DOXEPIN HCL (25 MG) 25 MG CAPSULE PO SCH (21:50)
[2016-08-29] MEDS: SENNOSIDES 8.6 MG TABLET PO SCH (21:50)
[2016-08-30] MEDS: PIPERACILLIN /TAZOBACTAM 3.375 G in IV D5W 50 ML IV SCH ×4 (00:35→18:12)
[2016-08-30] MEDS: HYDROCODONE/APAP 5/325MG 1 EACH TABLET PO PRN (03:07)
[2016-08-30] MEDS: ALBUTEROL FS 2.5 MG/0.5 ML VIAL.NEB NEB SCH ×6 (03:23→23:48)
[2016-08-30 04:00] VITALS: BP 90/46
--- NOTE | 2016-08-30 06:37 | NUR ---
RN NOTES : BLOOD SUGAR IS 131 MG/DL. WILL ENDORSE IT TO AM SHIFT NURSE TO FOLLOW UP.
[2016-08-30] MEDS: BLOOD SUGAR DIAGNOSTIC 1 EACH STRIP IN SCH ×4 (07:30→21:25)
[2016-08-30] MEDS: LEVOTHYROXINE SODIUM 100 MCG TABLET PO SCH (07:30)
[2016-08-30 08:00] VITALS: BP 109/61
[2016-08-30] MEDS: PANTOPRAZOLE 40 MG TABLET.DR PO SCH (09:00)
[2016-08-30] MEDS: APIXABAN 2.5 MG TABLET PO SCH ×2 (09:00→16:52)
[2016-08-30] MEDS: POLYETHYLENE GLYCOL 3350 17 GM POWD.PACK PO SCH (09:00)
[2016-08-30] MEDS: ESCITALOPRAM OXALATE (10 MG) 10 MG TABLET PO SCH (09:00)
[2016-08-30] MEDS: CARVEDILOL 12.5 MG TABLET PO SCH ×2 (09:00→21:25)
[2016-08-30] MEDS: TAMSULOSIN 0.4 MG CAP.SR.24H PO SCH (09:00)
[2016-08-30] MEDS: ALLOPURINOL 100 MG TABLET PO SCH ×2 (09:00→16:52)
[2016-08-30] MEDS: FUROSEMIDE 20 MG/2 ML VIAL IV SCH ×2 (09:00→16:52)
[2016-08-30] MEDS: ASPIRIN 81 MG TAB.CHEW PO SCH (09:00)
[2016-08-30] MEDS: MAGNESIUM OXIDE 400 MG TABLET PO SCH (09:00)
[2016-08-30 11:18] LABS: CALCITRIOL VIT D,1, 25 DIHYDRO 12.2 pg/mL (19.9-79.3)
[2016-08-30] MEDS: BENAZEPRIL HCL 5 MG TABLET PO SCH (12:17)
[2016-08-30] MEDS ORDERED: PEG 3350/NA SULF,BICARB,CL/KCL 4,000 ML BOTTLE PO ONE (14:00)
[2016-08-30] MEDS: SOD FERRIC GLUC 125 MG in IV NS 0.9% 100 ML IV SCH (15:00)
[2016-08-30 16:00] VITALS: BP 80/44
[2016-08-30] MEDS: INSULIN REGULAR, HUMAN 100 UNIT/ML 3 ML VIAL SQ PRN (16:58)
[2016-08-30 17:00] VITALS: BP 80/44
[2016-08-30 20:00] VITALS: BP 91/51
--- NOTE | 2016-08-30 20:15 | NUR ---
patient stable .report given to incoming nurse
[2016-08-30] MEDS: DOXEPIN HCL (25 MG) 25 MG CAPSULE PO SCH (21:25)
[2016-08-30] MEDS: SENNOSIDES 8.6 MG TABLET PO SCH (21:25)
[2016-08-30] MEDS: ATORVASTATIN 40 MG TABLET PO SCH (21:25)
[2016-08-31] MEDS ORDERED: IV SET PRIMARY PUMP SET 1 EA INFUS.SET MC ONE (01:01)
[2016-08-31] MEDS: PIPERACILLIN /TAZOBACTAM 3.375 G in IV D5W 50 ML IV SCH ×3 (01:01→13:45)
[2016-08-31] MEDS ORDERED: IV NS 0.9% 250 ML IV ONE (01:01)
[2016-08-31 04:00] VITALS: BP 83/45
[2016-08-31] MEDS: ALBUTEROL FS 2.5 MG/0.5 ML VIAL.NEB NEB SCH ×7 (04:08→23:23)
[2016-08-31 06:21] LABS: CALCIUM, SERUM 7.7 mg/dL (8.5-10.1); CREATININE 1.7 mg/dL (0.6-1.3); POTASSIUM 3.4 mmol/L (3.5-5.1)
[2016-08-31 06:23] LABS: BASOPHILS % (AUTO) 0.7 % (0.0-2.0); EOSINOPHILS # (AUTO) 0.1 /CMM (0.0-0.7); EOSINOPHILS % (AUTO) 1.7 % (0.0-6.0); HEMATOCRIT 33 % (39-51); HEMOGLOBIN 9.9 g/dL (13.5-17.5); LYMPHOCYTES # (AUTO) 0.8 /CMM (0.8-4.8); LYMPHOCYTES % (AUTO) 11.6 % (20.0-44.0); MEAN CORPUSCULAR HEMOGLOBIN 21 PG (26.0-33.0); MEAN CORPUSCULAR HGB CONC 30 g/dl (31.0-36.0); MEAN CORPUSCULAR VOLUME 70 fL (80-96); MONOCYTES # (AUTO) 0.8 /CMM (0.1-1.30); MONOCYTES % (AUTO) 11.7 % (2.0-12.0); NEUTROPHILS # (AUTO) 5.1 /CMM (1.8-8.9); NEUTROPHILS % (AUTO) 74.3 % (43.0-81.0); PLATELET COUNT (AUTO) 188 /CMM (150-450); RED BLOOD CELL COUNT(AUTO) 4.64 MIL/uL (4.5-6.0); WHITE BLOOD COUNT (AUTO) 6.9 K/uL (4.3-11.0)
[2016-08-31] MEDS: BLOOD SUGAR DIAGNOSTIC 1 EACH STRIP IN SCH ×4 (06:54→21:08)
--- NOTE | 2016-08-31 07:04 | NUR ---
RN NOTE PT REMAINS IN NO ACUTE DISTRESS IN BED. PT DID NOT HAVE ANY SIGNIFICANT CHANGE IN CONDITION DURING SHIFT. ALL NEEDS MET ALL ORDERS CARRIED OUT. ALL WOUND CARE ORDERS CARRIED OUT. IV PATENT CLEAN DRY AND INTACT. WILL ENDORSE TO AM RN FOR CONTINUITY OF CARE.
--- NOTE | 2016-08-31 07:30 | NUR ---
INITIAL NOTE RESTING IN BED. A+O X3, VERBALIZES NEEDS. PAIN IN LOWER BACK /10. BREATHING EVEN AND UNLABORED, REMOVED BIPAP, PUT NC 2L O2. CLEAR LIQUID DIET. ABD DISTENDED, NON-TENDER. BM LIQUID-WHEELER ALMOST CLEAR. APPROXIMATELY 200ML GO-LYTELY REMAINING. PATIENT COMPLIANT. DISCUSSED PLAN OF CARE. CALL LIGHT IN REACH.
[2016-08-31 08:00] VITALS: BP 107/64
[2016-08-31] MEDS: ALLOPURINOL 100 MG TABLET PO SCH ×2 (08:06→17:06)
[2016-08-31] MEDS: ESCITALOPRAM OXALATE (10 MG) 10 MG TABLET PO SCH (08:06)
[2016-08-31] MEDS: TAMSULOSIN 0.4 MG CAP.SR.24H PO SCH (08:06)
[2016-08-31] MEDS: LEVOTHYROXINE SODIUM 100 MCG TABLET PO SCH (08:07)
[2016-08-31] MEDS: MAGNESIUM OXIDE 400 MG TABLET PO SCH (08:07)
[2016-08-31] MEDS: PANTOPRAZOLE 40 MG TABLET.DR PO SCH (08:07)
[2016-08-31] MEDS: POLYETHYLENE GLYCOL 3350 17 GM POWD.PACK PO SCH (08:08)
[2016-08-31] MEDS: ASPIRIN 81 MG TAB.CHEW PO SCH (08:15)
[2016-08-31] MEDS: FUROSEMIDE 20 MG/2 ML VIAL IV SCH ×2 (08:16→17:09)
[2016-08-31] MEDS: CARVEDILOL 12.5 MG TABLET PO SCH ×2 (08:17→21:00)
[2016-08-31] MEDS: BENAZEPRIL HCL 5 MG TABLET PO SCH (08:18)
[2016-08-31] MEDS: APIXABAN 2.5 MG TABLET PO SCH ×2 (08:18→17:07)
--- NOTE | 2016-08-31 08:21 | NUR ---
NON ADMIN ASPIRIN AND ELIXIS HELD FOR PROCEDURE TODAY.
--- NOTE | 2016-08-31 09:55 | NUR ---
HANDED OFF REPORT AT THIS TIME TO OTHER NURSE D/T ASSIGNMENT CHANGE
[2016-08-31] MEDS: METOLAZONE 2.5 MG TABLET PO SCH (10:00)
--- NOTE | 2016-08-31 10:00 | NUR ---
MS RN NOTE RECEIVED PATIENT FROM HARISH JENKINS PATIENT RESTING COMFORTABLY IN BED AT THIS ,WITH BUPAP MACHINE REQUESTED BY PATIENT , RT FA HL INTACT BED IN LOWEST AND LOCKED POSITION , CALL LIGHT WITHIN REACH , WILL CONT TO MONITOR CLOSELY
[2016-08-31] MEDS ORDERED: POTASSIUM CHLORIDE 20 MEQ TAB.PRT.SR PO ONE ×2 (10:30→16:00)
--- NOTE | 2016-08-31 11:01 | NUR ---
MS RN NOTE SPOKE WITH DOMENICA FROM SURGERY AWARE THAT EARLIER PATIENT HAD JUICE AND JELLO ,STATED PER ANESTHESIOLOGIST PROCEDURE WILL BE AT 1345 , ON NPO AT THIS TIME ,WILL CONT TO MONITOR CLOSELY
--- NOTE | 2016-08-31 11:54 | NUR ---
MS RN NOTE HOLD PO MEDS AT THIS TIME ,PATENT ON NPO
--- NOTE | 2016-08-31 12:00 | NUR ---
MS RN NOTE REFUSED PT WILL F\U
[2016-08-31 12:15] LABS: *HGBFR CHEMOGLOBIN SOLUBILITY Negative (Negative); *HGBFRC HEMOGLOBIN A 98.3 % (94.0-98.0); *HGBFRC HEMOGLOBIN A2 1.7 % (0.7-3.1)
--- NOTE | 2016-08-31 13:50 | NUR ---
MS RN NOTE SEEN BY DR AU WITH ORDER SILVIA ZAMARRIPA
--- NOTE | 2016-08-31 14:00 | NUR ---
MS RN RN NOTE TAKEN TO OR FOR COLONOSCOPY
[2016-08-31] MEDS ORDERED: SECONDARY IV SET 1 EA INFUS.SET MC ONE (15:50)
[2016-08-31] MEDS: SOD FERRIC GLUC 125 MG in IV NS 0.9% 100 ML IV SCH (15:56)
[2016-08-31] MEDS: SPIRONOLACTONE 25 MG TABLET PO SCH (15:56)
[2016-08-31 16:00] VITALS: BP 115/43
--- NOTE | 2016-08-31 16:02 | NUR ---
MS RN NOTE CALLED TO DR ECHEVERRIA WITH ORDER TO GIVE REGULAR DIET
[2016-08-31] MEDS: ACETAMINOPHEN 325 MG TABLET PO PRN (17:07)
--- NOTE | 2016-08-31 18:47 | NUR ---
MS RN NOTE PER PATIENT REQUEST OK TO PLACE ON C PAP MACHINE
--- NOTE | 2016-08-31 19:20 | NUR ---
RN INITIAL NOTE RECEIVED PT IN NO ACUTE DISTRESS IN BED. PT IS ALERT, NON VERBAL, BUT ABLE TO MAKE NEEDS KNOWN. PT IS ON MECHANICAL VENT VIA TRACH. TRACH SITE IS CLEAN DRY INTACT. PT TOLERATING VENT SETTING WELL. PT IS S/P COLONOSCOPY WITHOUT ANY ADVERSE RESULTS. PT IS NOT C/O ANY SOB, DIFFICULTY BREATHING, OR PAIN AT THIS TIME. PT HAS RFA 22G THAT IS CLEAN DRY INTACT AND PATENT. BED IN LOW LOCK POSITION WITH RAILS UP X 2. CALL LIGHT WITHIN REACH AND ALL SAFETY MEASURES ENSURED AND CARRIED OUT.
[2016-08-31 20:00] VITALS: BP 95/50
[2016-08-31] MEDS: ATORVASTATIN 40 MG TABLET PO SCH (21:08)
[2016-08-31] MEDS: SENNOSIDES 8.6 MG TABLET PO SCH (21:09)
[2016-08-31] MEDS: DOXEPIN HCL (25 MG) 25 MG CAPSULE PO SCH (21:10)
[2016-08-31] MEDS: INSULIN REGULAR, HUMAN 100 UNIT/ML 3 ML VIAL SQ PRN (21:13)
[2016-09-01] MEDS: ALBUTEROL FS 2.5 MG/0.5 ML VIAL.NEB NEB SCH ×6 (03:22→23:38)
[2016-09-01 04:00] VITALS: BP 80/43
[2016-09-01] MEDS: LEVOTHYROXINE SODIUM 100 MCG TABLET PO SCH (06:57)
[2016-09-01] MEDS: BLOOD SUGAR DIAGNOSTIC 1 EACH STRIP IN SCH ×4 (06:59→21:31)
[2016-09-01] MEDS: INSULIN REGULAR, HUMAN 100 UNIT/ML 3 ML VIAL SQ PRN ×3 (07:01→21:39)
--- NOTE | 2016-09-01 07:28 | NUR ---
RN CLOSING NOTE PT REMAINS IN NO ACUTE DISTRESS IN BED. PT DID NOT HAVE ANY SIGNIFICANT CHANGE IN CONDITION DURING SHIFT. ALL NEEDS MET ALL ORDERS CARRIED OUT. WILL ENDORSE CARE TO AM RN FOR CONTINUITY OF CARE.
[2016-09-01 08:00] VITALS: BP 94/47
[2016-09-01] MEDS: APIXABAN 2.5 MG TABLET PO SCH ×2 (09:00→16:46)
[2016-09-01] MEDS: ASPIRIN 81 MG TAB.CHEW PO SCH (10:19)
[2016-09-01] MEDS: BENAZEPRIL HCL 5 MG TABLET PO SCH (10:19)
[2016-09-01] MEDS: MAGNESIUM OXIDE 400 MG TABLET PO SCH (10:20)
[2016-09-01] MEDS: ESCITALOPRAM OXALATE (10 MG) 10 MG TABLET PO SCH (10:20)
[2016-09-01] MEDS: METOLAZONE 2.5 MG TABLET PO SCH (10:21)
[2016-09-01] MEDS: ALLOPURINOL 100 MG TABLET PO SCH ×2 (10:21→16:45)
[2016-09-01] MEDS: TAMSULOSIN 0.4 MG CAP.SR.24H PO SCH (10:21)
[2016-09-01] MEDS: PANTOPRAZOLE 40 MG TABLET.DR PO SCH (10:21)
[2016-09-01] MEDS: CARVEDILOL 12.5 MG TABLET PO SCH ×2 (10:22→21:34)
[2016-09-01] MEDS: FUROSEMIDE 20 MG/2 ML VIAL IV SCH ×2 (10:23→16:47)
[2016-09-01] MEDS: SPIRONOLACTONE 25 MG TABLET PO SCH (10:23)
[2016-09-01] MEDS: POLYETHYLENE GLYCOL 3350 17 GM POWD.PACK PO SCH (10:23)
[2016-09-01 12:00] VITALS: BP 90/54
[2016-09-01] MEDS ORDERED: ERGOCALCIFEROL (VITAMIN D 2) 50,000 UNIT CAPSULE PO SCH (12:00)
[2016-09-01 16:00] VITALS: BP 87/36
[2016-09-01] MEDS: SOD FERRIC GLUC 125 MG in IV NS 0.9% 100 ML IV SCH (17:30)
--- NOTE | 2016-09-01 19:35 | NUR ---
patient is noted in a stable condition.night club manager nurse given report
[2016-09-01 20:00] VITALS: BP 116/60
[2016-09-01] MEDS: ATORVASTATIN 40 MG TABLET PO SCH (21:33)
[2016-09-01] MEDS: DOXEPIN HCL (25 MG) 25 MG CAPSULE PO SCH (21:33)
[2016-09-01] MEDS: SENNOSIDES 8.6 MG TABLET PO SCH (21:34)
[2016-09-02] MEDS: ALBUTEROL FS 2.5 MG/0.5 ML VIAL.NEB NEB SCH ×6 (03:32→23:41)
[2016-09-02 04:00] VITALS: BP 88/50
[2016-09-02] MEDS: BLOOD SUGAR DIAGNOSTIC 1 EACH STRIP IN SCH ×4 (06:33→21:30)
[2016-09-02] MEDS: MAGNESIUM OXIDE 400 MG TABLET PO SCH (08:07)
[2016-09-02] MEDS: LEVOTHYROXINE SODIUM 100 MCG TABLET PO SCH (08:07)
[2016-09-02] MEDS: TAMSULOSIN 0.4 MG CAP.SR.24H PO SCH (08:08)
[2016-09-02] MEDS: ESCITALOPRAM OXALATE (10 MG) 10 MG TABLET PO SCH (08:08)
[2016-09-02] MEDS: ASPIRIN 81 MG TAB.CHEW PO SCH (08:14)
[2016-09-02] MEDS: FUROSEMIDE 20 MG/2 ML VIAL IV SCH ×2 (08:14→17:34)
[2016-09-02] MEDS: SPIRONOLACTONE 25 MG TABLET PO SCH (08:14)
[2016-09-02] MEDS: ALLOPURINOL 100 MG TABLET PO SCH ×2 (08:15→17:36)
[2016-09-02] MEDS: POLYETHYLENE GLYCOL 3350 17 GM POWD.PACK PO SCH (08:15)
[2016-09-02] MEDS: PANTOPRAZOLE 40 MG TABLET.DR PO SCH (08:15)
[2016-09-02] MEDS: APIXABAN 2.5 MG TABLET PO SCH ×2 (08:15→17:35)
--- NOTE | 2016-09-02 08:24 | NUR ---
RCVD PT IN STABLE CONDITION...PT IN BED...C PAP ON...BREAKFAST TRAY AT BEDSIDE...THIS AM B/P=95/48...WILL RECHECK AND GIVE LATER WHEN HIGHER...CALL LIGHT AVAILABLE AND W/I REACH...NO RESP DISTRESS NOTED AT THIS TIME
[2016-09-02] MEDS: METOLAZONE 2.5 MG TABLET PO SCH (09:00)
[2016-09-02] MEDS: BENAZEPRIL HCL 5 MG TABLET PO SCH (09:00)
[2016-09-02] MEDS: CARVEDILOL 12.5 MG TABLET PO SCH ×2 (09:00→21:00)
[2016-09-02] MEDS: INSULIN REGULAR, HUMAN 100 UNIT/ML 3 ML VIAL SQ PRN ×3 (11:59→21:32)
[2016-09-02 12:00] VITALS: BP 100/58
[2016-09-02] MEDS: SOD FERRIC GLUC 125 MG in IV NS 0.9% 100 ML IV SCH (14:38)
[2016-09-02 15:47] LABS: CALCIUM, SERUM 7.6 mg/dL (8.5-10.1); CREATININE 1.9 mg/dL (0.6-1.3); POTASSIUM 3.8 mmol/L (3.5-5.1)
--- NOTE | 2016-09-02 17:42 | NUR ---
dinner QR=[phone]...no coverage required per sliding scale
--- NOTE | 2016-09-02 19:10 | NUR ---
no change in status this shift...md visits later this shift...new orders for labs in am...pt voiding w/o difficulty
[2016-09-02 20:00] VITALS: BP 96/44
[2016-09-02] MEDS: SENNOSIDES 8.6 MG TABLET PO SCH (21:30)
[2016-09-02] MEDS: ATORVASTATIN 40 MG TABLET PO SCH (21:30)
[2016-09-02] MEDS: DOXEPIN HCL (25 MG) 25 MG CAPSULE PO SCH (21:30)
[2016-09-03] MEDS: HYDROCODONE/APAP 5/325MG 1 EACH TABLET PO PRN ×2 (02:37→09:45)
[2016-09-03] MEDS: PROMETHAZINE HCL SYRUP 6.25 MG/5 ML UDC PO PRN ×2 (02:51→09:46)
[2016-09-03] MEDS: ALBUTEROL FS 2.5 MG/0.5 ML VIAL.NEB NEB SCH ×6 (03:40→22:59)
[2016-09-03 04:00] VITALS: BP 95/48
[2016-09-03] MEDS: BLOOD SUGAR DIAGNOSTIC 1 EACH STRIP IN SCH ×4 (06:37→21:25)
[2016-09-03] MEDS: INSULIN REGULAR, HUMAN 100 UNIT/ML 3 ML VIAL SQ PRN ×3 (06:41→21:30)
[2016-09-03 06:55] LABS: BASOPHILS % (AUTO) 0.2 % (0.0-2.0); EOSINOPHILS # (AUTO) 0.1 /CMM (0.0-0.7); EOSINOPHILS % (AUTO) 0.9 % (0.0-6.0); HEMATOCRIT 32 % (39-51); HEMOGLOBIN 9.9 g/dL (13.5-17.5); LYMPHOCYTES # (AUTO) 0.8 /CMM (0.8-4.8); LYMPHOCYTES % (AUTO) 8.1 % (20.0-44.0); MEAN CORPUSCULAR HEMOGLOBIN 22 PG (26.0-33.0); MEAN CORPUSCULAR HGB CONC 31 g/dl (31.0-36.0); MEAN CORPUSCULAR VOLUME 71 fL (80-96); MONOCYTES # (AUTO) 0.8 /CMM (0.1-1.30); MONOCYTES % (AUTO) 8.3 % (2.0-12.0); NEUTROPHILS # (AUTO) 8.3 /CMM (1.8-8.9); NEUTROPHILS % (AUTO) 82.5 % (43.0-81.0); PLATELET COUNT (AUTO) 166 /CMM (150-450); RDW COEFFICIENT OF VARIATION 23.7 (11.5-15.0); RED BLOOD CELL COUNT(AUTO) 4.57 MIL/uL (4.5-6.0); WHITE BLOOD COUNT (AUTO) 10.1 K/uL (4.3-11.0)
[2016-09-03 07:37] LABS: CALCIUM, SERUM 7.5 mg/dL (8.5-10.1); CREATININE 1.6 mg/dL (0.6-1.3); MAGNESIUM 1.8 mg/dL (1.8-2.4); PHOSPHORUS 3.2 mg/dL (2.5-4.9); POTASSIUM 3.6 mmol/L (3.5-5.1)
--- NOTE | 2016-09-03 07:50 | NUR ---
HANDOFF REPORT FROM NOC NURSE. PATIENT WILL NEED REPOSITIONING. SKIN IS RED AT THE COCCYX.
[2016-09-03 08:00] VITALS: BP 100/56
[2016-09-03] MEDS: LEVOTHYROXINE SODIUM 100 MCG TABLET PO SCH (08:14)
[2016-09-03 08:34] VITALS: BP 100/56
[2016-09-03] MEDS: SPIRONOLACTONE 25 MG TABLET PO SCH (09:19)
[2016-09-03] MEDS: PANTOPRAZOLE 40 MG TABLET.DR PO SCH (09:19)
[2016-09-03] MEDS: ALLOPURINOL 100 MG TABLET PO SCH ×2 (09:21→17:40)
[2016-09-03] MEDS: TAMSULOSIN 0.4 MG CAP.SR.24H PO SCH (09:21)
[2016-09-03] MEDS: MAGNESIUM OXIDE 400 MG TABLET PO SCH (09:21)
[2016-09-03] MEDS: CARVEDILOL 12.5 MG TABLET PO SCH ×2 (09:21→21:00)
[2016-09-03] MEDS: ASPIRIN 81 MG TAB.CHEW PO SCH (09:22)
[2016-09-03] MEDS: POLYETHYLENE GLYCOL 3350 17 GM POWD.PACK PO SCH (09:22)
[2016-09-03] MEDS: METOLAZONE 2.5 MG TABLET PO SCH (09:22)
[2016-09-03] MEDS: BENAZEPRIL HCL 5 MG TABLET PO SCH (09:22)
[2016-09-03 09:26] LABS: EOSINOPHILS % (MANUAL) 1 % (0-4); LYMPHOCYTES % (MANUAL) 4 % (16-48); MONOCYTES % (MANUAL) 9 % (0-11.0); NEUTROPHILS % (MANUAL) 86 (42-76)
[2016-09-03] MEDS: FUROSEMIDE 20 MG/2 ML VIAL IV SCH ×2 (09:31→17:00)
[2016-09-03] MEDS: ESCITALOPRAM OXALATE (10 MG) 10 MG TABLET PO SCH (09:31)
[2016-09-03] MEDS: APIXABAN 2.5 MG TABLET PO SCH ×2 (09:32→17:40)
[2016-09-03 16:00] VITALS: BP 83/52
[2016-09-03 17:01] VITALS: BP 83/52
--- NOTE | 2016-09-03 19:23 | NUR ---
Handoff to noc nurse. Pain management with norco for left arm not recommended as well as work up for dvt on the same per Doctor Saucedo. Patient on optimized plan for his current medical diagnosis. Noc nurse verbalized understanding.
--- NOTE | 2016-09-03 19:25 | NUR ---
GREGORY INITIAL NOTES PT IS IN BED RESTING COMFORTABLY, A/O X3, DENIES PAIN, ON NC 2L SATURAITN Addendum: 09/04/16 at 0312 by DEANDRE FIELD RN SATURATING 98%, BR AND ASSISTED PT WITH TURNING, L WRIST FLUSHED AND PATENT ON SL. SIDERAILS UP, BED LOCKED AND IN LOWEST POSITION. CALL LIGHT WITHIN REACH.
[2016-09-03 20:00] VITALS: BP_SYST 81; BP_SYST 83; BP_DIAS 35; BP_DIAS 52
[2016-09-03] MEDS: ATORVASTATIN 40 MG TABLET PO SCH (21:25)
[2016-09-03] MEDS: SENNOSIDES 8.6 MG TABLET PO SCH (21:25)
[2016-09-03] MEDS: DOXEPIN HCL (25 MG) 25 MG CAPSULE PO SCH (21:25)
[2016-09-04] MEDS: ALBUTEROL FS 2.5 MG/0.5 ML VIAL.NEB NEB SCH ×4 (03:30→15:32)
[2016-09-04 04:00] VITALS: BP_SYST 83; BP_SYST 88; BP_DIAS 49
[2016-09-04 06:39] LABS: BASOPHILS % (AUTO) 0.4 % (0.0-2.0); EOSINOPHILS # (AUTO) 0.2 /CMM (0.0-0.7); EOSINOPHILS % (AUTO) 1.6 % (0.0-6.0); HEMATOCRIT 33 % (39-51); HEMOGLOBIN 10.3 g/dL (13.5-17.5); LYMPHOCYTES # (AUTO) 0.8 /CMM (0.8-4.8); LYMPHOCYTES % (AUTO) 6.8 % (20.0-44.0); MEAN CORPUSCULAR HEMOGLOBIN 22 PG (26.0-33.0); MEAN CORPUSCULAR HGB CONC 31 g/dl (31.0-36.0); MEAN CORPUSCULAR VOLUME 71 fL (80-96); MONOCYTES # (AUTO) 0.9 /CMM (0.1-1.30); MONOCYTES % (AUTO) 8.1 % (2.0-12.0); NEUTROPHILS # (AUTO) 9.3 /CMM (1.8-8.9); NEUTROPHILS % (AUTO) 83.1 % (43.0-81.0); PLATELET COUNT (AUTO) 152 /CMM (150-450); RDW COEFFICIENT OF VARIATION 25.6 (11.5-15.0); RED BLOOD CELL COUNT(AUTO) 4.66 MIL/uL (4.5-6.0); WHITE BLOOD COUNT (AUTO) 11.2 K/uL (4.3-11.0)
[2016-09-04] MEDS: BLOOD SUGAR DIAGNOSTIC 1 EACH STRIP IN SCH ×3 (06:49→16:56)
[2016-09-04 06:53] LABS: CALCIUM, SERUM 7.8 mg/dL (8.5-10.1); CREATININE 1.7 mg/dL (0.6-1.3); PHOSPHORUS 3.8 mg/dL (2.5-4.9); POTASSIUM 4.1 mmol/L (3.5-5.1)
--- NOTE | 2016-09-04 07:00 | NUR ---
RN NOTES RECEIVED PT ON BED , A/Ox2-3, ON CPAP AT THIS TIME , O2 SAT 98%, ERLINDA SOB , RESPIRATION EVEN AND UNLABORED, NO DISTRESS NOTED , L WRIST IV SITE CDI, SR UP x3, CALL LIGHT WITHIN EASY REACH , CONTINUE TO MONITOR PT CLOSELY AND NOTIFY MD FOR ANY SIGNIFICANT CHANGES .
--- NOTE | 2016-09-04 07:31 | NUR ---
RN CLOSING NOTES NO SIGNIFICANT CHANGES OVERNIGHT, NO C/O SOB, NO RESPIRATORY DISTRESS NOTED. ALL MEDS GIVEN AND TOLERATED IT WELL, ASSISTED PT WITH ADLS. ALL SAFETY MEASURES MAINTAINED, ALL NEEDS MET, CALL LIGHT WITHIN REACH, ENDORSED TO AM NURSE FOR CONTINUOUS OF CARE.
[2016-09-04 08:00] VITALS: BP 90/48
[2016-09-04] MEDS: ESCITALOPRAM OXALATE (10 MG) 10 MG TABLET PO SCH (08:25)
[2016-09-04] MEDS: CARVEDILOL 12.5 MG TABLET PO SCH (08:26)
[2016-09-04] MEDS: METOLAZONE 2.5 MG TABLET PO SCH (08:27)
[2016-09-04] MEDS: FUROSEMIDE 20 MG/2 ML VIAL IV SCH ×2 (08:27→16:56)
[2016-09-04] MEDS: SPIRONOLACTONE 25 MG TABLET PO SCH (08:28)
[2016-09-04] MEDS: ASPIRIN 81 MG TAB.CHEW PO SCH (08:28)
[2016-09-04] MEDS: POLYETHYLENE GLYCOL 3350 17 GM POWD.PACK PO SCH (08:28)
[2016-09-04] MEDS: PANTOPRAZOLE 40 MG TABLET.DR PO SCH (08:28)
[2016-09-04] MEDS: LEVOTHYROXINE SODIUM 100 MCG TABLET PO SCH (08:28)
[2016-09-04] MEDS: TAMSULOSIN 0.4 MG CAP.SR.24H PO SCH (08:28)
[2016-09-04] MEDS: MAGNESIUM OXIDE 400 MG TABLET PO SCH (08:28)
[2016-09-04] MEDS: ALLOPURINOL 100 MG TABLET PO SCH ×2 (08:28→16:56)
[2016-09-04] MEDS: APIXABAN 2.5 MG TABLET PO SCH ×2 (08:31→16:56)
[2016-09-04 08:36] LABS: BAND % (MANUAL) 1 % (0.0-5.0); EOSINOPHILS % (MANUAL) 1 % (0-4); LYMPHOCYTES % (MANUAL) 2 % (16-48); MONOCYTES % (MANUAL) 3 % (0-11.0); NEUTROPHILS % (MANUAL) 93 (42-76)
[2016-09-04] MEDS: BENAZEPRIL HCL 5 MG TABLET PO SCH (09:00)
--- NOTE | 2016-09-04 12:00 | NUR ---
RN NOTES PT OOB TO CHAIR , DOING WELL , NO DISTRESS NOTED
[2016-09-04] MEDS: INSULIN REGULAR, HUMAN 100 UNIT/ML 3 ML VIAL SQ PRN ×2 (12:21→16:55)
[2016-09-04 16:00] VITALS: BP 95/53
--- NOTE | 2016-09-04 18:02 | NUR ---
RN NOTES DISCHARGE INSTRUCTION GIVE TO PT , PT STABLE, PT LEFT THE FLOOR TO BOARDING CARE VIA AMBULANCE ACCOMPANIED BY EMT PERSONAL .
== END 2016-09-04 17:49 | DRG 291 ==
LOC: ER 20:18 → TELE1 08-23 00:15 → MEDSG1 08-23 11:27
PROVIDERS: ADMIT Internal Medicine; ATTEND Nurse Practitioner Acute Care
PROC: 0DJD8ZZ Inspection of Lower Intestinal Tract, Via Natural or Artificial Opening Endoscopic (ICD-10-PCS; 2016-08-29)
PROC: 0DB68ZX Excision of Stomach, Via Natural or Artificial Opening Endoscopic, Diagnostic (ICD-10-PCS; principal; 2016-08-29 10:37)
DX: I13.0 Hypertensive heart and chronic kidney disease with heart failure and stage 1 through stage 4 chronic kidney disease, or unspecified chronic kidney disease (principal); J96.91 Respiratory failure, unspecified with hypoxia; I50.23 Acute on chronic systolic (congestive) heart failure; N17.0 Acute kidney failure with tubular necrosis; J69.0 Pneumonitis due to inhalation of food and vomit; J12.9 Viral pneumonia, unspecified; D68.59 Other primary thrombophilia; J44.0 Chronic obstructive pulmonary disease with (acute) lower respiratory infection; N18.4 Chronic kidney disease, stage 4 (severe); I87.1 Compression of vein; R18.8 Other ascites; E11.22 Type 2 diabetes mellitus with diabetic chronic kidney disease; I48.91 Unspecified atrial fibrillation; J44.9 Chronic obstructive pulmonary disease, unspecified; M10.9 Gout, unspecified; K21.9 Gastro-esophageal reflux disease without esophagitis; I48.2 Chronic atrial fibrillation; E78.5 Hyperlipidemia, unspecified; Z98.1 Arthrodesis status; D50.9 Iron deficiency anemia, unspecified; Z95.810 Presence of automatic (implantable) cardiac defibrillator; E66.9 Obesity, unspecified; Z79.01 Long term (current) use of anticoagulants; I70.0 Atherosclerosis of aorta; D63.8 Anemia in other chronic diseases classified elsewhere; E66.01 Morbid (severe) obesity due to excess calories; E86.0 Dehydration; E87.6 Hypokalemia; E89.0 Postprocedural hypothyroidism; F02.80 Dementia in other diseases classified elsewhere, unspecified severity, without behavioral disturbance, psychotic disturbance, mood disturbance, and anxiety; G30.9 Alzheimer's disease, unspecified; G47.33 Obstructive sleep apnea (adult) (pediatric); I25.10 Atherosclerotic heart disease of native coronary artery without angina pectoris; K74.60 Unspecified cirrhosis of liver; K75.81 Nonalcoholic steatohepatitis (NASH); N40.0 Benign prostatic hyperplasia without lower urinary tract symptoms; Y95 Nosocomial condition; Z79.82 Long term (current) use of aspirin; Z87.891 Personal history of nicotine dependence
CPT/HCPCS: 36415; 71010-TC; 76705-TC; 76770-TC; 80048-TC; 80053-TC; 80061-TC; 80076-TC; 80162-TC; 82272-TC; 82306; 82652; 82728-TC; 82962-TC; 83021; 83540-TC; 83605-TC; 83735-TC; 83880; 83970; 84100-TC; 84443-TC; 84484-TC; 84550-TC; 85025-TC; 85660; 86803; 87040-TC; 87081-TC; 87340; 87400; 88305-TC; 88313-TC; 88342; 93307-TC; 94760-TC; 94799-TC; 97001-TC; 97110-TC; 97116-TC; 97530-TC; A4217; A4606; A6402; J1815; J1940; J2543; J2704; J2916; J3475; J3490; J7030; J7050; J7060; Q0169; Z7610